=== PATIENT | male | born 1995 | race Caucasian/White ===

== ENCOUNTER 2018-07-07 21:31 | Emergency (ER) | payer OTHER ==
[2018-07-08] MEDS ORDERED: HYDROCODONE/ACETAMINOPHEN 10-325 MG TABLET PO ONE (01:11)
[2018-07-08] MEDS ORDERED: AMOXICILLIN TR/POT CLAVULANATE 500-125 MG TAB PO ONE (01:11)
[2018-07-08] MEDS ORDERED: LIDOCAINE 1%/EPINEPHRINE INJ 20 ML VIAL INJ ONE (01:12)
[2018-07-08] MEDS ORDERED: DIPH/PERTUSS(ACELL)/TETANUS VAC/PF 0.5 ML SYR (>=10YO) IM ONE (01:12)
--- NOTE | 2018-07-08 01:14 | ER Document Report ---
ED Medical Screen (RME) - General Chief Complaint: Dog Bite Stated Complaint: LIP INJURY/DOG BITE Time Seen by Provider: 07/08/18 01:11 Notes: Patient is a 23-year-old male presents to the emergency department after getting a bit in the right upper lip by his dog. Patient states that his child is up-to-date on his vaccines. Patient states he is unsure of when his last tetanus immunization was. Patient's denying any allergies to any medications. GENERAL: Alert, interacts well. No acute distress. HEAD: Normocephalic SKIN: Warm, dry, normal turgor. 1.5 cm laceration through the vermilion border of the right upper lip. I have greeted and performed a rapid initial assessment of this patient. A comprehensive ED assessment and evaluation of the patient, analysis of test results and completion of the medical decision making process will be conducted by additional ED providers. TRAVEL OUTSIDE OF THE [place] IN LAST 30 DAYS: No Physical Exam - Vital signs Vitals: Temp Pulse Resp BP Pulse Ox 98.5 F 65 16 112/81 100 07/07/18 22:22 07/07/18 22:22 07/07/18 22:22 07/07/18 22:22 07/07/18 22:22 Course - Vital Signs Vital signs: Temp Pulse Resp BP Pulse Ox 98.5 F 65 16 112/81 100 07/07/18 22:22 07/07/18 22:22 07/07/18 22:22 07/07/18 22:22 07/07/18 22:22
--- NOTE | 2018-07-08 03:38 | ER Document Report ---
HPI - HPI Patient complains to provider of: Dog bite Time Seen by Provider: 07/08/18 01:11 Pain Level: 4 Context: Patient is a 23-year-old male presents to the emergency department after getting a bit in the right upper lip by his dog. Patient states that his dog is up-to-date on his vaccines. Patient states he is unsure of when his last tetanus immunization was. Patient's denying any allergies to any medications. - DERM Skin Color: Normal Past Medical History - General Information source: Patient - Social History Smoking Status: Never Smoker Family History: Reviewed & Not Pertinent Patient has suicidal ideation: No Patient has homicidal ideation: No Renal/ Medical History: Denies: Hx Peritoneal Dialysis Vertical Provider Document - CONSTITUTIONAL Agree With Documented VS: Yes Notes: GENERAL: Alert, interacts well. No acute distress. HEAD: Normocephalic EYES: Pupils equal, round, and reactive to light. Extraocular movements intact. ENT: Oral mucosa moist, tongue midline. Nares patent, no nasal septal hematoma, TM's intact, no hemotympanum noted bilaterally. Frenulum is intact, dentition also intact. NECK: Full range of motion. Supple. Trachea midline. LUNGS: Clear to auscultation bilaterally, no wheezes, rales, or rhonchi. No respiratory distress. HEART: Regular rate and rhythm. No murmur ABDOMEN: Soft, non-tender. Non-distended. Bowel sounds present in all 4 quadrants. EXTREMITIES: Moves all 4 extremities spontaneously. No edema, normal radial and dorsalis pedis pulses bilaterally. No cyanosis. BACK: no cervical, thoracic, lumbar midline tenderness. No saddle anesthesia, normal distal neurovascular exam. NEUROLOGICAL: Alert and oriented x3. Normal speech. cranial nerves II through XII grossly intact. PSYCH: Normal affect, normal mood. SKIN: Warm, dry, normal turgor. 1.5 cm laceration noted to the right upper lip through the vermilion border. - INFECTION CONTROL TRAVEL OUTSIDE OF THE [place] IN LAST 30 DAYS: No Course - Re-evaluation Re-evalutation: 07/08/18 03:34 Patient's laceration was loosely approximated due to it going through the vermilion border and being on his face. Discussed with him high incidences of infection related to dog bites. Discussed close follow-up with primary care provider and return precautions. Patient voices understanding. - Vital Signs Vital signs: Temp Pulse Resp BP Pulse Ox 98.2 F 61 14 122/60 100 07/08/18 01:38 07/08/18 01:38 07/08/18 01:38 07/08/18 01:38 07/08/18 01:38 Procedures - Laceration/Wound Repair lip Wound length (cm): 1.5 Wound's Depth, Shape: Superficial Laceration pre-procedure: Sterile PPE donned, Sterile drapes applied, Shur-Clens applied Anesthetic type: 1% Lidocaine w/epi Volume Anesthetic (mLs): 2 Wound explored: Clean Irrigated w/ Saline (mLs): 500 Wound Debrided: Extensive Wound Repaired With: Sutures Suture Size/Type: 6:0, Ethilon Number of Sutures: 2 Post-procedure wound care: Sterile dressing applied Post-procedure NV exam normal: Yes Complications: No Discharge - Discharge Clinical Impression: Laceration Dog bite Qualifiers: Encounter type: initial encounter Qualified Code(s): W54.0XXA - Bitten by dog, initial encounter Condition: Stable Disposition: HOME, SELF-CARE Instructions: Tetanus Immunization Given ([facility]), Laceration Care ([facility]), Animal Bites ([facility]) Additional Instructions: As we discussed you have been seen and treated in the emergency department for a dog bite to her right upper lip. I have loosely approximated your wound due to it going through your vermilion border and being on your face. Please know that dog bites to get infected very easily. Please make sure you take antibiotics as prescribed. Please make sure if you notice any swelling, redness, discharge from the wound he should immediately return to the emergency room please keep the wound clean and dry. The sutures need to be taken out in the next 5-7 days. Please return to the emergency room or follow-up with your primary care provider for that. Prescriptions: Amox Tr/Potassium Clavulanate [Augmentin 875-125 Tablet] 1 tab PO BID 10 Days tablet Forms: Return to Work
[2018-07-08 04:09] VITALS: BP 118/90
== END 2018-07-08 04:09 | disposition home or self-care (01) ==
LOC: ER 21:31
DX: S01.551A Open bite of lip, initial encounter (principal); W54.0XXA Bitten by dog, initial encounter
CPT/HCPCS: 99283; 90715; 12011; J3490

== ENCOUNTER 2018-07-18 14:55 | Emergency (ER) | payer OTHER ==
[2018-07-18 15:07] VITALS: BP 136/56
--- NOTE | 2018-07-18 15:26 | ER Document Report ---
HPI - HPI Time Seen by Provider: 07/18/18 15:25 Pain Level: Denies Context: Patient is a 23-year-old male who presents emergency department for suture removal. He has 3 sutures noted to his right upper lip. He denies any fever, purulent drainage, or any complications. His sutures were placed on July 07. - ROS Systems Reviewed and Negative: Yes All other systems reviewed and negative - CONSTITUTIONAL Constitutional: DENIES: Fever, Chills - NEURO Neurology: DENIES: Headache - CARDIOVASCULAR Cardiovascular: DENIES: Chest pain - RESPIRATORY Respiratory: DENIES: Trouble Breathing, Coughing - DERM Skin Color: Normal Skin Problems: None Past Medical History - Social History Smoking Status: Never Smoker Frequency of alcohol use: None Drug Abuse: None Family History: Reviewed & Not Pertinent Renal/ Medical History: Denies: Hx Peritoneal Dialysis Vertical Provider Document - CONSTITUTIONAL Agree With Documented VS: Yes Exam Limitations: No Limitations - INFECTION CONTROL TRAVEL OUTSIDE OF THE [place] IN LAST 30 DAYS: No - HEENT HEENT: Atraumatic, Normocephalic - NECK Neck: Normal Inspection - RESPIRATORY Respiratory: No Respiratory Distress - CARDIOVASCULAR Cardiovascular: Regular Rate - MUSCULOSKELETAL/EXTREMETIES Musculoskeletal/Extremeties: FROM - NEURO Level of Consciousness: Awake, Alert, Appropriate - DERM Integumentary: Warm, Dry, No Rash, Laceration - Healed laceration noted to right upper lip; 3 stitches noted. Course - Re-evaluation Re-evalutation: 07/18/18 15:27 3 sutures were removed with no difficulty by PCT. No redness, swelling, purule nt drainage, or any signs of infection noted. Patient is stable for discharge. - Vital Signs Vital signs: Temp Pulse Resp BP Pulse Ox 99.0 F 60 16 136/56 H 97 07/18/18 15:05 07/18/18 15:05 07/18/18 15:05 07/18/18 15:05 07/18/18 15:05 Discharge - Discharge Clinical Impression: Visit for suture removal Condition: Stable Disposition: HOME, SELF-CARE Additional Instructions: You were seen today in the emergency department for a suture removal. The wound healed well. You may apply sunblock to the area to help with prevention of a scar. Follow-up with your primary care provider if needed.
== END 2018-07-18 15:41 | disposition home or self-care (01) ==
LOC: ER 14:55
DX: S01.511D Laceration without foreign body of lip, subsequent encounter (principal); X58.XXXD Exposure to other specified factors, subsequent encounter